=== PATIENT | female | born 1985 | race Caucasian/White ===

== ENCOUNTER → 2019-02-10 | Outpatient (CLI) | payer BC ==
--- NOTE | 2019-02-10 09:45 | RAD ---
EXAM DESCRIPTION: Foot,Left 3 Views CLINICAL HISTORY: 33 years Female, PAIN IN LEFT FOOT COMPARISON: None. FINDINGS: 3 views of the left foot show no acute fracture or malalignment. 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 Tiny calcification along the dorsal aspect of the midfoot which may be related to remote trauma or degenerative change, not acute. No soft tissue swelling. No radiopaque foreign body or soft tissue gas. 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 No acute left foot abnormality. Electronically signed by: Arvind Croft MD 02/10/2019 9:43 AM [facility]
== END ==
LOC: RAD 09:05
PROVIDERS: ATTEND Orthopaedic Surgery
DX: M89.8X7 Other specified disorders of bone, ankle and foot (principal); M79.672 Pain in left foot